=== PATIENT | male | born 1960 | race Caucasian/White ===

== ENCOUNTER 2021-11-26 12:34 | Emergency (ER) | payer OTHER, BC ==
[2021-11-26] MEDS ORDERED: Lidocaine 1% 5 ML VIAL INJECT ONE (12:51)
[2021-11-26] MEDS ORDERED: Diphtheria,Pertussis(Acell),Tetanus Vaccine 0.5 ML Syringe IM ONE (12:53)
[2021-11-26] MEDS ORDERED: Bacitracin/Neomycin/Polymyxin B Oint 28.4 GM Tube TOP ONE (13:15)
== END 2021-11-26 13:45 | disposition home or self-care (01) ==
LOC: CC.ED 12:34
DX: S61.412A Laceration without foreign body of left hand, initial encounter (principal); F17.210 Nicotine dependence, cigarettes, uncomplicated; Z23 Encounter for immunization; W45.0XXA Nail entering through skin, initial encounter
CPT/HCPCS: 12001; 90471; 90715; 99282-25; 99283; A9270-GY